=== PATIENT | female | born 1965 | race Caucasian/White ===

== ENCOUNTER 2017-09-12 10:34 | Emergency (ER) | payer MEDICAID, OTHER ==
[~2017-09-12] VITALS: Ht 162.6 cm; Wt 135.0 kg
[~2017-09-12 10:34] MED LIST: ACYC5OIN4 TOPICAL; ADDE20XR PO; ASPI81TA81; BIOTCAP PO; CEPH500C PO; CLON1 PO; CYAN1000P IM; CYCL10TA PO; EFFE150C PO; GABA800T PO; HYDR-3516 PO; IBUP1TAB7 PO; LABE100T2 PO; LEVO175T2 PO; LOSA100T PO; PANT40TA3 PO; PYRI100T PO; SERO50TA PO; VITA10002 PO; VITA10003 PO
[2017-09-12 11:04] VITALS: BP 150/72; PULSE 58; RESP 17; TEMP 98.2; O2SAT 98
[2017-09-12 12:17] LABS: AUTOMATED NEUTROPHIL # 2.6 TH/MM3 (1.8-7.7); BASOPHIL # 0.1 TH/MM3 (0-0.2); BASOPHIL % 1.4 % (0.0-2.0); EOSINOPHIL # 0.1 TH/MM3 (0-0.4); EOSINOPHIL % 2.6 % (0.0-4.0); HEMOGLOBIN 14.4 GM/DL (11.6-15.3); LYMPH % 32.6 % (9.0-44.0); LYMPHOCYTE # 1.4 TH/MM3 (1.0-4.8); MEAN CORPUSCULAR HEMOGLOBIN 28.5 PG (27.0-34.0); MEAN CORPUSCULAR HGB CONC 33.5 % (32.0-36.0); MEAN PLATELET VOLUME 8.4 FL (7.0-11.0); MONO % 5.1 % (0.0-8.0); MONOCYTE # 0.2 TH/MM3 (0-0.9); NEUT % 58.3 % (16.0-70.0); PLATELET COUNT 297 TH/MM3 (150-450); RED BLOOD COUNT 5.06 MIL/MM3 (4.00-5.30); RED CELL DISTRIBUTION WIDTH 16.2 % (11.6-17.2); WHITE BLOOD COUNT 4.4 TH/MM3 (4.0-11.0)
[2017-09-12 12:42] LABS: ALBUMIN 3.6 GM/DL (3.4-5.0); ALT (GPT) 17 U/L (10-53); AST (GOT) 17 U/L (15-37); BICARBONATE 29.7 MEQ/L (21.0-32.0); BLOOD UREA NITROGEN 13 MG/DL (7-18); CHLORIDE 105 MEQ/L (98-107); GLOMERULAR FILTRATION RATE 59 ML/MIN (>89); GLUCOSE,RANDOM 88 MG/DL (74-106); SODIUM (NA) 140 MEQ/L (136-145)
[2017-09-12 12:45] LABS: ALKALINE PHOSPHATASE 88 U/L (45-117); TOTAL BILIRUBIN ADULT 0.5 MG/DL (0.2-1.0); TOTAL PROTEIN 8.1 GM/DL (6.4-8.2)
[2017-09-12] MEDS ORDERED: LEVO175T2 PO (13:21)
[2017-09-12] MEDS ORDERED: LABE100T2 PO (13:21)
--- NOTE | 2017-09-12 13:21 | PD ---
HPI Chief Complaint: General Weakness Time Seen by Provider: 13:00 Travel History International Travel<30 days: No Contact w/Intl Traveler<30days: No Traveled to known affect area: No History of Present Illness HPI 51-year-old female complains of noncompliance with Synthroid and labetalol due to no primary care follow-up. Duration is been a couple weeks. She also complains of hidradenitis lesions about the belly chronic in nature for years. She also complains about a tongue lesion 2 years old. No fever. PFSH Past Medical History Hx Anticoagulant Therapy: Yes (81 ASA) ADD: Yes Arthritis: Yes Anxiety: Yes Depression: Yes Cancer: No Cardiovascular Problems: Yes (HTN) Endocrine: Yes Genitourinary: No Hypertension: Yes Immune Disorder: Yes (fibromyalgia chronic fatique) Implanted Vascular Access Dvce: Yes Musculoskeletal: Yes Neurologic: Yes (narcolepsy) Psychiatric: Yes Reproductive: No Respiratory: Yes Sleep Apnea: Yes (no cpap) Thyroid Disease: Yes (graves disease) ?: Not Past Surgical History Abdominal Surgery: Yes (gastric bypass) Body Medical Devices: lap band Section: Yes Gynecologic Surgery: Yes (lap band ) Hysterectomy: Yes Other Surgery: Yes (GATRIC BYPASS) Social History Alcohol Use: No Tobacco Use: No Substance Use: No Allergies-Medications (Allergen,Severity, Reaction): Coded Allergies: aripiprazole (Unverified Allergy, Severe, 09/12/17) rash Uncoded Allergies: adhesive tape (Allergy, Severe, reddness and irritation, 10/28/10) Reported Meds & Prescriptions Reported Meds & Active Scripts Active Levothyroxine (Levothyroxine Sodium) 175 Mcg Tab 175 Mcg PO DAILY Labetalol (Labetalol HCl) 100 Mg Tab 100 Mg PO BID 30 Days Cephalexin 500 Mg Cap 500 Mg PO Q12H Losartan (Losartan Potassium) 100 Mg Tab 100 Mg PO DAILY Adderall Xr 24 HR (Amphetamine/Dextroamphetamine) 20 Mg Cap 20 Mg PO BID Once daily in the morning. Seroquel (Quetiapine Fumarate) 50 Mg Tab 50 Mg PO HS Klonopin (Clonazepam) 1 Mg Tab 1 Mg PO TID Effexor XR 24 HR (Venlafaxine HCl) 150 Mg Cap 150 Mg PO BID Reported Vitamin B-12 (Cyanocobalamin) 1,000 Mcg Tab 1,000 Mcg PO DAILY Aspir-81 (Aspirin) 81 Mg Tabdr Biotin 5 Mg Cap 5 Mg PO Vitamin B-6 (Pyridoxine HCl) 100 Mg Tab 100 Mg PO DAILY Vitamin D-3 (Cholecalciferol) 1,000 Unit Tab 5,000 Units PO DAILY Acyclovir Topical (Acyclovir) 5% Oint 1 Applic TOPICAL Q3HR Cyanocobalamin Inj (Cyanocobalamin) 1,000 Mcg/Ml Inj 1,000 Mcg IM MONTHLY PRN Ibuprofen 800 Mg Tab 800 Mg PO BID PRN Flexeril (Cyclobenzaprine HCl) 10 Mg Tab 10 Mg PO PRN Pantoprazole (Pantoprazole Sodium) 40 Mg Tab 40 Mg PO DAILY Hydrocodone-Acetaminophen 5-325 mg Tab 1 Tab PO Q6H PRN Gabapentin 800 Mg Tab 800 Mg PO TID Review of Systems Except as stated in HPI: all other systems reviewed are Neg General / Constitutional: No: Fever Eyes: No: Diploplia Physical Exam Narrative GENERAL: 51 yo F, WNWD Vital Signs Date Time Temp Pulse Resp B/P (MAP) Pulse Ox O2 Delivery O2 Flow Rate FiO2 09/12/17 13:35 88 18 152/78 (102) 98 09/12/17 11:04 98.2 58 17 150/72 (98) 98 SKIN: Warm and dry. R lower abdominal wall with approx 6cm lesion c/w hydradenitis. HEAD: Atraumatic. Normocephalic. EYES: Pupils equal and round. No scleral icterus. No injection or drainage. ENT: No nasal bleeding or discharge. Mucous membranes pink and moist. NECK: Trachea midline. No JVD. CARDIOVASCULAR: Regular rate and rhythm. RESPIRATORY: No accessory muscle use. Clear to auscultation. Breath sounds equal bilaterally. GASTROINTESTINAL: Abdomen soft, non-tender, nondistended. Hepatic and splenic margins not palpable. MUSCULOSKELETAL: Extremities without clubbing, cyanosis, or edema. No obvious deformities. NEUROLOGICAL: Awake and alert. No obvious cranial nerve deficits. Motor grossly within normal limits. Five out of 5 muscle strength in the arms and legs. Normal speech. PSYCHIATRIC: Appropriate mood and affect; insight and judgment normal. Data Data Last Documented VS Vital Signs Date Time Temp Pulse Resp B/P (MAP) Pulse Ox O2 Delivery O2 Flow Rate FiO2 09/12/17 13:35 88 18 152/78 (102) 98 09/12/17 11:04 98.2 Orders Orders Complete Blood Count With Diff (09/12/17 11:09) Comprehensive Metabolic Panel (09/12/17 11:09) Urinalysis - C+S If Indicated (09/12/17 11:09) Thyroid Stimulating Hormone (09/12/17 11:12) Ed Discharge Order (09/12/17 13:22) Labs Laboratory Tests Test 09/12/17 11:30 White Blood Count 4.4 TH/MM3 Red Blood Count 5.06 MIL/MM3 Hemoglobin 14.4 GM/DL Hematocrit 43.0 % Mean Corpuscular Volume 85.0 FL Mean Corpuscular Hemoglobin 28.5 PG Mean Corpuscular Hemoglobin Concent 33.5 % Red Cell Distribution Width 16.2 % Platelet Count 297 TH/MM3 Mean Platelet Volume 8.4 FL Neutrophils (%) (Auto) 58.3 % Lymphocytes (%) (Auto) 32.6 % Monocytes (%) (Auto) 5.1 % Eosinophils (%) (Auto) 2.6 % Basophils (%) (Auto) 1.4 % Neutrophils # (Auto) 2.6 TH/MM3 Lymphocytes # (Auto) 1.4 TH/MM3 Monocytes # (Auto) 0.2 TH/MM3 Eosinophils # (Auto) 0.1 TH/MM3 Basophils # (Auto) 0.1 TH/MM3 CBC Comment DIFF FINAL Differential Comment Blood Urea Nitrogen 13 MG/DL Creatinine 1.00 MG/DL Random Glucose 88 MG/DL Total Protein 8.1 GM/DL Albumin 3.6 GM/DL Calcium Level 9.0 MG/DL Alkaline Phosphatase 88 U/L Aspartate Amino Transf (AST/SGOT) 17 U/L Alanine Aminotransferase (ALT/SGPT) 17 U/L Total Bilirubin 0.5 MG/DL Sodium Level 140 MEQ/L Potassium Level 3.9 MEQ/L Chloride Level 105 MEQ/L Carbon Dioxide Level 29.7 MEQ/L Anion Gap 5 MEQ/L Estimat Glomerular Filtration Rate 59 ML/MIN Thyroid Stimulating Hormone 3rd Gen GREATER THAN 100.000 uIU/ML MDM Medical Decision Making Medical Screen Exam Complete: Yes Emergency Medical Condition: Yes Medical Record Reviewed: Yes Differential Diagnosis hydradenitis, medication refill, hypertension Narrative Course CBC & BMP Diagram 09/12/17 11:30 Total Protein 8.1, Albumin 3.6, Calcium Level 9.0, Alkaline Phosphatase 88, Aspartate Amino Transf (AST/SGOT) 17, Alanine Aminotransferase (ALT/SGPT) 17, Total Bilirubin 0.5 TSH > 100 No evidence of thyroid coma or critical clinical hypothyroidism Synthroid script provided Labetalol script provided Follow up for OMFS and general surgery information provided in keeping with patient's request Diagnosis Primary Impression: Hydradenitis Additional Impressions: Tongue lesion Hypertension Qualified Codes: I10 - Essential (primary) hypertension Hypothyroidism Qualified Codes: E03.9 - Hypothyroidism, unspecified Referrals: Dimitri Moody MD call for appointment General surgeon Reynold Walton DDS call for appointment Maxillofacial surgeon Med/Other Pt SpecificInfo: Prescription(s) given Scripts Levothyroxine (Levothyroxine) 175 Mcg Tab 175 MCG PO DAILY for Thyroid, #60 TAB 0 Refills Prov: Roger Teague MD 09/12/17 Labetalol (Labetalol) 100 Mg Tab 100 MG PO BID for Blood Pressure Management for 30 Days, #60 TAB 0 Refills Prov: Roger Teague MD 09/12/17 Disposition: 01 DISCHARGE HOME Condition: Stable Roger Teague MD Sep 12, 2017 13:21
[2017-09-12 13:35] VITALS: BP 152/78
== END 2017-09-12 13:57 | disposition home or self-care (01) ==
LOC: NEPD 10:34
DX: K13.70 Unspecified lesions of oral mucosa (principal); I10 Essential (primary) hypertension; E03.9 Hypothyroidism, unspecified; L73.2 Hidradenitis suppurativa; M79.7 Fibromyalgia; Z79.82 Long term (current) use of aspirin
CPT/HCPCS: 80053; 84443; 85025; 99283